=== PATIENT | male | born 1990 | race Caucasian/White ===

== ENCOUNTER 2017-06-05 14:46 | Emergency (ER) | payer OTHER ==
[~2017-06-05] VITALS: Ht 170.2 cm; Wt 75.0 kg
[2017-06-05 14:50] VITALS: BP 142/90; PULSE 80; RESP 12; TEMP 98; O2SAT 99
--- NOTE | 2017-06-05 14:54 | PD ---
Physical Exam Date Seen by Provider: Jun 05, 2017 Time Seen by Provider: 14:52 Data Data Last Documented VS Vital Signs Date Time Temp Pulse Resp B/P (MAP) Pulse Ox O2 Delivery O2 Flow Rate FiO2 06/05/17 14:50 98.0 80 12 142/90 (107) 99 MDM Supervised Visit with BRISEYDA: No Narrative Course 27-year-old male presents to the ED for evaluation of right-sided knee pain x one week. Maximally rated 10/10, 2/10 on presentation. Denies known injury but states that his work is physically demanding. Patient states the pain was so bad he had to leave work today. Vitals reviewed. Patient seen in triage, awaiting bed placement. Silvia Kasper Jun 05, 2017 14:54
--- NOTE | 2017-06-05 15:31 | RADRPT ---
EXAM DATE/TIME: 06/05/2017 15:07 [facility] COMPARISON: No previous studies available for comparison. INDICATIONS : Right knee pain and swelling. No prior trauma. MEDICAL HISTORY : None. SURGICAL HISTORY : None. ENCOUNTER: Initial ACUITY: 3 days PAIN SCORE: 5/10 LOCATION: Right knee. FINDINGS: Four view examination of the right knee demonstrates no evidence of fracture or dislocation. Bony mi neralization is normal. The articular surfaces are intact. The suprapatellar soft tissues have a no rmal configuration. CONCLUSION: 1. Unremarkable radiographs of the right knee. 2. No acute fracture or dislocation. Dwayne Lemus MD on June 05, 2017 at 15:29 Board Certified Radiologist. This report was verified electronically.
[2017-06-05] MEDS ORDERED: ZOLO100T PO (16:04)
--- NOTE | 2017-06-05 16:41 | PD ---
HPI Chief Complaint: Injury Time Seen by Provider: 16:22 Travel History International Travel<30 days: No Contact w/Intl Traveler<30days: No Traveled to known affect area: No History of Present Illness HPI 27-year-old male presents emergency department for evaluation of nontraumatic right knee pain times one week. Patient reports the pain started after he walked 14 miles last week. He reports worse pain is worse with flexion of the knee relieved with rest. Severity is mild. No alleviating factors. Reporting that his work is physically demanding and had to leave work today. PFSH Past Medical History Medical History: Denies Significant Hx Social History Tobacco Use: No Allergies-Medications (Allergen,Severity, Reaction): Coded Allergies: erythromycin base (Verified Allergy, Severe, 06/05/17) Reported Meds & Prescriptions Reported Meds & Active Scripts Active Reported Zoloft (Sertraline HCl) 100 Mg Tab 100 Mg PO DAILY Review of Systems Except as stated in HPI: all other systems reviewed are Neg Physical Exam Narrative GENERAL: Well-nourished, well-developed patient. SKIN: Focused skin assessment warm/dry. HEAD: Normocephalic. EYES: No scleral icterus. No injection or drainage. NECK: Supple, trachea midline. No JVD or lymphadenopathy. CARDIOVASCULAR: Regular rate and rhythm without murmurs, gallops, or rubs. RESPIRATORY: Breath sounds equal bilaterally. No accessory muscle use. GASTROINTESTINAL: Abdomen soft, non-tender, nondistended. MUSCULOSKELETAL: No cyanosis, or edema. Right knee: The joint is stable. No effusion. Mild pain with full flexion and varus/valgus tension. 2+ distal pulses. Normal sensation. Data Data Last Documented VS Vital Signs Date Time Temp Pulse Resp B/P (MAP) Pulse Ox O2 Delivery O2 Flow Rate FiO2 06/05/17 14:50 98.0 80 12 142/90 (107) 99 Orders Orders Knee, Complete (4vws) (06/05/17 14:54) Delbert Bandage (06/05/17 16:42) MDM Medical Decision Making Medical Screen Exam Complete: Yes Emergency Medical Condition: Yes Differential Diagnosis Right knee pain: Sprain versus strain versus fracture Narrative Course 27-year-old male here with nontraumatic right knee pain times one week. Patient reports pain started after walking 14 miles. He has pain with flexion and twisting. Pain is relieved with rest. X-ray of the right knee was negative for acute fracture. Patient be treated for knee sprain. Instructed to take [id number] NSAIDs. Ice and elevate the extremity. Diagnosis Primary Impression: Knee strain Qualified Codes: S86.911A - Strain of unspecified muscle(s) and tendon(s) at lower leg level, right leg, initial encounter Referrals: [facility] Departure Forms: Tests/Procedures, Work Release Enter return to work date: Jun 07, 2017 Additional Instructions: Take [id number] Motrin 600 mg every 6-8 hours as needed for pain. Wear the Delbert wrap as needed for support. Avoid heavy lifting and strenuous activity. Follow-up with her doctor. Disposition: 01 DISCHARGE HOME Condition: Stable Zahraa Yao Jun 05, 2017 16:41
== END 2017-06-05 17:17 | disposition home or self-care (01) ==
LOC: NEPD 14:46
DX: S86.911A Strain of unspecified muscle(s) and tendon(s) at lower leg level, right leg, initial encounter (principal); Y93.01 Activity, walking, marching and hiking
CPT/HCPCS: 73564; 99283